=== PATIENT | male | born 1975 | race Caucasian/White ===

== ENCOUNTER 2018-04-17 17:01 | Emergency (ER) | payer OTHER ==
[~2018-04-17] VITALS: Ht 177.8 cm; Wt 68.0 kg
[~2018-04-17 17:01] MED LIST: AUGMENTIN 875875 MG PO; UNISOM25 MG PO
[2018-04-17] MEDS ORDERED: NABUMETONE 750750 M1 PO (18:48)
[2018-04-17] MEDS ORDERED: ONDANSETRON HCL4 M2 PO (18:48)
[2018-04-17] MEDS ORDERED: TRAMADOL 50 MG50 MG PO (18:58)
[2018-04-17 19:27] VITALS: BP 136/97
== END 2018-04-17 19:27 | disposition home or self-care (01) ==
LOC: M.ERS 17:01
DX: S01.01XA Laceration without foreign body of scalp, initial encounter (principal); Z86.14 Personal history of Methicillin resistant Staphylococcus aureus infection; W22.8XXA Striking against or struck by other objects, initial encounter; Y93.89 Activity, other specified; Y92.89 Other specified places as the place of occurrence of the external cause; Y99.8 Other external cause status

== ENCOUNTER 2018-06-22 06:51 | Emergency (ER) | payer OTHER ==
[~2018-06-22] VITALS: Ht 177.8 cm; Wt 72.1 kg
[~2018-06-22 06:51] MED LIST changes: +NABUMETONE 750750 M1 PO; +ONDANSETRON HCL4 M2 PO; +TRAMADOL 50 MG50 MG PO
[2018-06-22] MEDS ORDERED: POLYMYXIN B/TMP10 ML OPHTHALMIC (07:04)
[2018-06-22] MEDS ORDERED: MULTIVITAMINS1 EAC7 PO (07:04)
[2018-06-22] MEDS ORDERED: ERYTHROMYCIN E3.5 G3 OPHTHALMIC (07:54)
[2018-06-22 08:02] VITALS: BP 143/70
== END 2018-06-22 08:03 | disposition home or self-care (01) ==
LOC: M.ERS 06:51
DX: S05.01XA Injury of conjunctiva and corneal abrasion without foreign body, right eye, initial encounter (principal); Z86.14 Personal history of Methicillin resistant Staphylococcus aureus infection; X58.XXXA Exposure to other specified factors, initial encounter; Y93.89 Activity, other specified; Y92.89 Other specified places as the place of occurrence of the external cause; Y99.8 Other external cause status

== ENCOUNTER 2019-04-05 08:56 | Emergency (ER) | payer OTHER ==
[~2019-04-05] VITALS: Ht 177.8 cm; Wt 72.6 kg
[~2019-04-05 08:56] MED LIST changes: +ERYTHROMYCIN E3.5 G3 OPHTHALMIC; +MULTIVITAMINS1 EAC7 PO; +POLYMYXIN B/TMP10 ML OPHTHALMIC
[2019-04-05] MEDS ORDERED: UNISOM SLEEP AI25 MG PO (09:04)
[2019-04-05 09:22] LABS: ABSOLUTE EOSINOPHILS 0.4 thou/uL (0.0-0.7); ABSOLUTE LYMPHOCYTES 2.1 thou/uL (0.8-5.3); ABSOLUTE MONOCYTES 0.6 thou/uL (0.0-1.2); ABSOLUTE NEUTROPHILS 4.3 thou/uL (1.6-8.1); BASOPHILS 0.6 %; EOSINOPHILS 5.6 %; HEMATOCRIT 44.3 % (42.0-52.0); HEMOGLOBIN 15.4 gm/dL (14.0-18.0); LYMPHOCYTES 28.1 %; MCH 32.3 pg (26.0-34.0); MCHC 34.7 g/dL (28.0-37.0); MCV 93.1 fL (80.0-100.0); MONOCYTES 8.7 %; MPV 8.1 fl. (7.2-11.1); NUCLEATED RBCS 0 /100WBC; PLATELET COUNT* 320 thou/uL (150-400); RBC 4.75 mil/uL (4.50-6.00); RDW-CV 13.4 % (10.5-14.5); WBC 7.5 thou/uL (4.0-11.0)
[2019-04-05 09:23] LABS: URINE BILIRUBIN NEGATIVE (Negative); URINE BLOOD NEGATIVE (Negative); URINE CLARITY CLEAR; URINE COLOR YELLOW; URINE GLUCOSE-RANDOM NEGATIVE (Negative); URINE KETONES NEGATIVE (Negative); URINE LEUKOCYTES-REFLEX NEGATIVE (Negative); URINE NITRITE-REFLEX NEGATIVE (Negative); URINE PROTEIN NEGATIVE (Negative); URINE UROBILINOGEN 0.2 E.U./dl (0.2-1.0)
[2019-04-05 09:28] LABS: CALCIUM 8.4 mg/dL (8.5-10.1); CREATININE 1.1 mg/dL (0.6-1.3); POTASSIUM 3.8 mmol/L (3.5-5.1)
[2019-04-05 09:32] LABS: ALBUMIN 4.2 g/dL (3.4-5.0); TOTAL BILIRUBIN 0.5 mg/dL (<0.1-1.0); TOTAL PROTEIN 8.4 g/dL (6.4-8.2)
[2019-04-05] MEDS ORDERED: HYDROCODON-ACE1 EAC7 PO (10:36)
[2019-04-05] MEDS ORDERED: ZOFRAN ODT4 MG PO (10:36)
[2019-04-05] MEDS ORDERED: CIPROFLOXACIN500 M1 PO (10:38)
[2019-04-05 10:45] VITALS: BP 138/78
== END 2019-04-05 10:46 | disposition home or self-care (01) ==
LOC: M.ERS 08:56
PROVIDERS: Personal Emergency Response Attendant
DX: K52.9 Noninfective gastroenteritis and colitis, unspecified (principal); R10.31 Right lower quadrant pain; Z86.14 Personal history of Methicillin resistant Staphylococcus aureus infection

== ENCOUNTER 2019-09-12 08:09 | Emergency (ER) | payer OTHER ==
[~2019-09-12] VITALS: Ht 177.8 cm; Wt 74.8 kg
[~2019-09-12 08:09] MED LIST changes: +CIPROFLOXACIN500 M1 PO; +HYDROCODON-ACE1 EAC7 PO; +UNISOM SLEEP AI25 MG PO; +ZOFRAN ODT4 MG PO
[2019-09-12] MEDS ORDERED: GABAPENTIN (08:23)
[2019-09-12] MEDS ORDERED: GENTAK5 ML TOP (08:46)
[2019-09-12 08:55] VITALS: BP 135/85
== END 2019-09-12 08:55 | disposition home or self-care (01) ==
LOC: M.ERS 08:09
DX: S05.01XA Injury of conjunctiva and corneal abrasion without foreign body, right eye, initial encounter (principal); Z86.14 Personal history of Methicillin resistant Staphylococcus aureus infection; Z91.013 Allergy to seafood; W22.8XXA Striking against or struck by other objects, initial encounter; Y93.89 Activity, other specified; Y92.89 Other specified places as the place of occurrence of the external cause; Y99.8 Other external cause status